=== PATIENT | female | born 1990 | race American Indian/Alaskan Native ===

== ENCOUNTER 2021-05-14 03:22 | Emergency (ER) | payer OTHER ==
[2021-05-14 06:46] LABS: Bilirubin,Urine NEG (Negative); Blood,Urine MOD (Negative); Color,Urine Yellow (Yellow); Mucus,Urine FEW /HPF; Urobilinogen,Urine < 2.0 mg/dL (<2.0)
[2021-05-14 06:59] LABS: WBC,Urine > 182.0 /HPF (0.0-6.0)
[2021-05-14 07:02] LABS: HCG Qualitative,Urine Negative (Negative)
--- NOTE | 2021-05-14 07:46 | Emergency Department Report ---
ED Female HPI - General Chief complaint: Urogenital-Female Stated complaint: PELVIC PAIN/BLOOD IN URINE Time Seen by Provider: 05/14/21 07:41 Source: patient Mode of arrival: Ambulatory Limitations: No Limitations - History of Present Illness Initial comments: 31-year-old -[place] female presents to the emergency room for urinary urgency frequency and dysuria x1 day. Patient denies any fever chills or nausea no vomiting no vaginal discharge no vaginal bleeding. Last menstrual periods 04/25/2021. She denies any past medical history currently takes no medications on a daily basis and has no known drug allergies. MD Complaint: dysuria, pelvic pain Onset/Timin -: days(s) - Related Data Previous Rx's Medication Instructions Recorded Last Taken Type Ibuprofen [Motrin 600 MG tab] 600 mg PO Q8H PRN #30 tablet 05/14/21 Unknown Rx Nitrofurantoin Drew/M-Cryst 100 mg PO Q12HR 10 Days #20 capsule 05/14/21 Unknown Rx [Macrobid CAP] Allergies Allergy/AdvReac Type Severity Reaction Status Date / Time No Known Allergies Allergy Unverified 05/14/21 04:42 ED Review of Systems ROS: Stated complaint: PELVIC PAIN/BLOOD IN URINE Other details as noted in HPI ED Past Medical Hx - Past Medical History Previous Medical History?: No - Surgical History Past Surgical History?: No - Medications Home Medications: Home Medications Medication Instructions Recorded Confirmed Last Taken Type Ibuprofen [Motrin 600 MG tab] 600 mg PO Q8H PRN #30 tablet 05/14/21 Unknown Rx Nitrofurantoin Drew/M-Cryst 100 mg PO Q12HR 10 Days #20 capsule 05/14/21 Unknown Rx [Macrobid CAP] ED Physical Exam - General Limitations: No Limitations General appearance: alert, in no apparent distress - Head Head exam: Present: atraumatic, normocephalic - Eye Eye exam: Present: EOMI - ENT ENT exam: Present: normal external ear exam - Neck Neck exam: Present: normal inspection, full ROM - Respiratory Respiratory exam: Absent: respiratory distress, accessory muscle use - Cardiovascular Cardiovascular Exam: Present: regular rate - Extremities Exam Extremities exam: Present: normal inspection, full ROM - Back Exam Back exam: Present: normal inspection - Neurological Exam Neurological exam: Present: alert, oriented X3, normal gait - Psychiatric Psychiatric exam: Present: normal affect, normal mood - Skin Skin exam: Present: warm, dry, intact, normal color. Absent: rash ED Course Vital Signs 05/14/21 04:42 Temperature 97.9 F Pulse Rate 86 Respiratory 16 Rate Blood Pressure 127/83 [Left] O2 Sat by Pulse 100 Oximetry ED Medical Decision Making - Medical Decision Making 31-year-old -[place] female presents to the emergency room for urinary urgency frequency and dysuria x1 day. Patient denies any fever chills or nausea no vomiting no vaginal discharge no vaginal bleeding. Last menstrual periods 04/25/2021. She denies any past medical history currently takes no medications on a daily basis and has no known drug allergies. Patient has a urinary tract infection. Patient be treated with Macrobid. Discussed with patient is to increase her fluids. Void after intercourse. Follow-up with a [facility] or primary care provider in 1 week to have a repeat urine. Critical care attestation.: If time is entered above; I have spent that time in minutes in the direct care of this critically ill patient, excluding procedure time. ED Disposition Clinical Impression: UTI (urinary tract infection) Disposition: - TO HOME OR SELFCARE Is pt being admited?: No Does the pt Need Aspirin: No Condition: Stable Instructions: Urinary Tract Infection, Adult, [id number] Additional Instructions: Complete antibiotics as prescribed. Increase your fluid intake which means increase by 2 to 3 L of fluid. Stay away from sugary drinks. Void after intercourse. Follow-up with your primary care provider or OB for repeat urine in 1 week. Prescriptions: Nitrofurantoin Drew/M-Cryst [Macrobid CAP] 100 mg PO Q12HR 10 Days #20 capsule Ibuprofen [Motrin 600 MG tab] 600 mg PO Q8H PRN #30 tablet PRN Reason: Pain Referrals: [facility] [Provider Group] - 3-5 Days [facility] [Provider Group] - 3-5 Days Forms: Work/School Release Form(ED) Time of Disposition: 07:44
[2021-05-14 08:24] VITALS: BP 121/74
== END 2021-05-14 08:20 | disposition home or self-care (01) ==
LOC: ED 03:22
DX: N39.0 Urinary tract infection, site not specified (principal); R35.0 Frequency of micturition
CPT/HCPCS: 81001; 81025; 99283